=== PATIENT | female | born 1975 | race Caucasian/White ===

== ENCOUNTER 2017-03-19 13:18 | Emergency (ER) | payer OTHER ==
[~2017-03-19] VITALS: Ht 172.7 cm; Wt 64.9 kg
[2017-03-19] MEDS ORDERED: SODIUM CHLORIDE FLUSH 10ML SYR IVF ONE (14:00)
[2017-03-19] MEDS ORDERED: KETOROLAC 30 MG/1 ML IVPush ONE (14:00)
[2017-03-19] MEDS ORDERED: SODIUM CHLORIDE 0.9% 1,000ML IVBOLUS ONE (14:00)
[2017-03-19] MEDS ORDERED: MORPHINE SULFATE 4 MG/ML, 1ML IVPush PRN (14:00)
[2017-03-19] MEDS ORDERED: ONDANSETRON 2MG/ML, 2ML IVPush ONE (14:00)
[2017-03-19 14:13] LABS: HEMATOCRIT 36.8 % (34.6-47.8); HEMOGLOBIN 11.8 g/dL (11.7-16.4); WHITE BLOOD COUNT 8.3 x10^3/uL (3.4-10)
[2017-03-19] MEDS ORDERED: MORPHINE SULFATE 4 MG/ML, 1ML ONE ×3 (14:21→19:15)
[2017-03-19] MEDS ORDERED: ONDANSETRON 2MG/ML, 2ML ONE (14:21)
[2017-03-19] MEDS ORDERED: KETOROLAC 30 MG/1 ML ONE (14:21)
[2017-03-19 14:22] LABS: BLOOD UREA NITROGEN 9 mg/dL (7-18)
[2017-03-19 14:23] LABS: ASPARTATE AMINO TRANSFERASE 594 U/L (15-37)
[2017-03-19] MEDS ORDERED: AMPICILLIN/SULBACTAM 3 GM in SODIUM CHLORIDE 0.9% 100 ML IV ONE (14:30)
[2017-03-19 15:45] VITALS: BP 120/62
== END 2017-03-19 15:55 | disposition home or self-care (01) ==
LOC: ED 15:49
DX: L03.317 Cellulitis of buttock (principal); R74.0 Nonspecific elevation of levels of transaminase and lactic acid dehydrogenase [LDH]; K83.1 Obstruction of bile duct
CPT/HCPCS: 36415; 80053; 83690; 85025; 85610; 96361; 96365; 96375; 99285; J0295; J1885; J2405; J7030